=== PATIENT | male | born 1945 | race Caucasian/White ===

== ENCOUNTER → 2016-08-16 | Day surgery (SDC) | payer OTHER ==
[2016-08-04 11:09] VITALS: BMI 34.0
[~2016-08-16] VITALS: Ht 175.3 cm; Wt 106.8 kg
[~2016-08-16] MED LIST: FRS/40 PO; LIDOCAINE HCL 2% 2 ML VIAL (20MG/ML) ONE; LNX125 PO; METO1TAB66 PO; ONDANSETRON INJ 2 MG/ML 2 ML VIAL IV PRN; PROPOFOL IV EMULSION 10 MG/ML 20 ML VIAL IV ONE; SPIR25TA89 PO; TPRSR/100 PO; WARF3TAB PO; WARF3TAB6 PO
[2016-08-16 13:34] VITALS: Ht 175.3 cm; Wt 106.8 kg
--- NOTE | 2016-08-16 13:46 | Endo History and Physical ---
History & Physical Date of Service: Aug 16, 2016. Chief Complaint: Colon cancer screening Referring Physician: History of Present Illness Patient for colorectal cancer screening, no symptoms or family history. Past Surgical History Hx Cardiac Surgery: Yes (HEART CATH, NO STENT) Hx Internal Defibrillator: No Hx Pacemaker: No Hx Abdominal Surgery: Yes (UMBILICAL HERNIA REPAIR) Hx of Implantable Prosthesis: No Hx Post-Op Nausea and Vomiting: No Hx Cancer Surgery: No Hx Thoracic Surgery: No Hx Orthopedic: Yes (C5-6 FUSION (FULL ROM)) Hx Urinary Tract Surgery: No Family History None Social History Smoking Status: Never Smoker Hx Substance Use: No Hx Alcohol Use: Yes (OCCASIONAL) Allergies Coded Allergies: Penicillins (Verified Allergy, Severe, GI UPSET, 08/16/16) Sulfamethoxazole w/Trimethoprim (Verified Allergy, Severe, GI UPSET, HIVES , 08/16/16) Sulfa Antibiotics (Verified Allergy, Unknown, NAUSEA/VOMITING, 08/16/16) Current Medications Reported Home Medications Medications Dose Route/Sig Max Daily Dose Days Date Category Dose Instructions Jantoven (Warfarin Sodium) 3 Mg Tab 0.5 Tab PO 3XWK 08/04/16 Reported MON,WED,FRI Aldactone (Spironolactone) 25 Mg Tab 25 Mg PO QAM 08/04/16 Reported Toprol Xl (Metoprolol Succinate) 50 Mg Tab 50 Mg PO QAM 08/04/16 Reported Coumadin (Warfarin Sodium) 3 Mg Tab 3 Mg PO 4XWK 02/09/12 Reported SUN,TUES,THURS,SAT Lasix (Furosemide) 40 Mg Tab 40 Mg PO QAM 02/09/12 Reported Vital Signs Weight (Kilograms): 106.82 Height (Feet): 5 Height (Inches): 9 Date Time Temp Pulse Resp B/P Pulse Ox O2 Delivery O2 Flow Rate FiO2 08/16/16 13:39 36.5 53 20 151/87 94 Room Air Physical Exam General Appearance: no apparent distress Respiratory/Chest: Auscultation: deminished air movement Cardiovascular: Heart Auscultation: RRR Abdomen: Inspection & Palpation: soft, distended Assessment and Plan Patient for CRC screening today, risks discussed to include bleeding, infection , pain, perforation, missed polyps and cardiac problems.
--- NOTE | 2016-08-16 14:48 | GI REPORT ---
Procedure Date: 08/16/2016 1:51 PM Procedure: Colonoscopy Indications: Screening for colorectal malignant neoplasm Medicines: Monitored Anesthesia Care Complications: No immediate complications. Estimated blood loss: Minimal. Estimated Blood Loss: Estimated blood loss was minimal. Procedure: Pre-Anesthesia Assessment: - Prior to the procedure, a History and Physical was performed, and patient medications, allergies and sensitivities were reviewed. The patient's tolerance of previous anesthesia was reviewed. - The risks and benefits of the procedure and the sedation options and risks were discussed with the patient. All questions were answered and informed consent was obtained. - Patient identification and proposed procedure were verified prior to the procedure by the physician, the nurse and the manager primary. The procedure was verified in the procedure room. - Pre-procedure physical examination revealed no contraindications to sedation. - ASA Grade Assessment: III - A patient with severe systemic disease. - After reviewing the risks and benefits, the patient was deemed in satisfactory condition to undergo the procedure. - The anesthesia plan was to use monitored anesthesia care (MAC). - Immediately prior to administration of medications, the patient was re-assessed for adequacy to receive sedatives. - The heart rate, respiratory rate, oxygen saturations, blood pressure, adequacy of pulmonary ventilation, and response to care were monitored throughout the procedure. - The physical status of the patient was re-assessed after the procedure. After I obtained informed consent, the scope was passed under direct vision. Throughout the procedure, the patient's blood pressure, pulse, and oxygen saturations were monitored continuously. The scope was introduced through the anus and advanced to the terminal ileum. The colonoscopy was performed without difficulty. The patient tolerated the procedure well. The quality of the bowel preparation was adequate to identify polyps 6 mm and larger in size. Findings: The perianal and digital rectal examinations were normal. Pertinent negatives include normal sphincter tone. The terminal ileum appeared normal. Four sessile polyps were found in the ascending colon. The polyps were 5 to 10 mm in size. These polyps were removed with a hot snare. Resection and retrieval were complete. Estimated blood loss was minimal. Two 7 and 9 mm polyp was found in the descending colon. The polyp was semi-pedunculated. Polypectomy was attempted, initially using a hot snare. Polyp resection was incomplete with this device. This intervention then required a different device and polypectomy technique. The polyp was removed with a hot snare. Resection and retrieval were complete. Estimated blood loss was minimal. Internal hemorrhoids were found during retroflexion. The hemorrhoids were mild. The exam was otherwise without abnormality. Impression: - The examined portion of the ileum was normal. - Four 5 to 10 mm polyps in the ascending colon, removed with a hot snare. Resected and retrieved. - Two 7 and 9 mm polyp in the descending colon, removed with a hot snare. Resected and retrieved. - Internal hemorrhoids. - The examination was otherwise normal. Recommendation: - Discharge patient to home (ambulatory). - Advance diet as tolerated today. - Await pathology results. - Repeat colonoscopy in 3 years for surveillance based on pathology results. - Return to GI office PRN. Marques Ayoub D.O. Marques Ayoub, 08/16/2016 2:47:38 PM This report has been signed electronically. Note Initiated On: 08/16/2016 1:51 PM I attest to the content of the Intraoperative Record and orders documented therein, exceptions below
--- NOTE | 2016-08-16 15:06 | Discharge Instructions ---
Endoscopy Patient Instructions Date / Procedure(s) Performed Aug 16, 2016. Colonoscopy Allergy Information Coded Allergies: Penicillins (Verified Allergy, Severe, GI UPSET, 08/16/16) Sulfamethoxazole w/Trimethoprim (Verified Allergy, Severe, GI UPSET, HIVES , 08/16/16) Sulfa Antibiotics (Verified Allergy, Unknown, NAUSEA/VOMITING, 08/16/16) Discharge Date / Findings Aug 16, 2016. 6 colon polyps internal hemorrhoids Medication Instructions Stopped Medication(s): PATIENT INSTRUCTED TO STOP TAKING SPIRONALACTONE, LASIX, AND COUMADIN. Reported Home Medications Medications Dose Route/Sig Max Daily Dose Days Date Category Dose Instructions Jantoven (Warfarin Sodium) 3 Mg Tab 0.5 Tab PO 3XWK 08/04/16 Reported MON,WED,FRI Aldactone (Spironolactone) 25 Mg Tab 25 Mg PO QAM 08/04/16 Reported Toprol Xl (Metoprolol Succinate) 50 Mg Tab 50 Mg PO QAM 08/04/16 Reported Coumadin (Warfarin Sodium) 3 Mg Tab 3 Mg PO 4XWK 02/09/12 Reported SUN,TUES,THURS,SAT Lasix (Furosemide) 40 Mg Tab 40 Mg PO QAM 02/09/12 Reported Provider Instructions Activity Restrictions - No exercising or heavy lifting for 24 hours. - Do not drink alcohol the day of the procedure. - Do not drive a car or operate machinery until the day after the procedure. - Do not make any important decisions or sign important papers in 24 hours after the procedure. Following Day: - Return to full activity which may include returning to work/school. Diet Start your diet with liquids and light foods (jello, soup, juice, toast). Then eat your usual diet if not nauseated. Treatment For Common After Affects For mild abdominal pain, bloating, or excessive gas: - Rest - Eat lightly - Lie on right side Follow-Up Information Repeat colonoscopy in 3 years May restart coumadin today. Anesthesia Information What You Should Know You have had a procedure that required some medicine to reduce anxiety and discomfort. This treatment is called moderate sedation. After receiving the treatment, you may be sleepy, but you will be able to breathe on your own. The effects of the treatment may last for several hours. Follow these instructions along with Activity/Diet recommendations noted above: * Do NOT do anything where dizziness or clumsiness would be dangerous. * Rest quietly at home today, then you can be up and about tomorrow. * Have a responsible person stay with you the rest of today. * You may have had an I.V. today. If so, you may take the dressing off later today. Recommendations Call your doctor if: * Trouble breathing * Continuous vomiting for more than 24 hours * Temperature above 101 degrees * Severe abdominal pain or bloating * Pain not relieved by pain medicine ordered * There is increased drainage or redness from any incision * A large amount of rectal bleeding greater than 2-3 tablespoons. (If you had a polyp/s removed or have hemorrhoids, a small amount of blood - from the rectum is to be expected.) * You have any unanswered questions or concerns. IN THE EVENT OF A SERIOUS EMERGENCY, GO TO THE NEAREST EMERGENCY ROOM Your discharge instructions were prepared by provider Marques Ayoub. Patient Instructions Signature Page Eric Tyler Patient (or Guardian) Signature/Date: I have read and understand the instructions given to me by my caregivers. Caregiver/RN/Doctor Signature/Date: The above-named patient and/or guardian has received patient instructions on this date. + Original Patient Signature Page (only) stays with chart. Please make copy for patient.
[2016-08-16 15:19] VITALS: BP 143/80; PULSE 89; O2SAT 96
--- NOTE | 2016-08-16 15:33 | Anesthesiology Progress Note ---
Anesthesia Post Op Note Date & Time Aug 16, 2016 at 15:32 Vital Signs Pain Intensity: 0 Vital Signs Past 12 Hours Date Time Temp Pulse Resp B/P Pulse Ox O2 Delivery O2 Flow Rate FiO2 08/16/16 15:19 89 20 143/80 96 Room Air 08/16/16 15:06 82 20 142/75 96 Room Air 08/16/16 14:51 89 20 126/78 96 Room Air 08/16/16 13:39 36.5 53 20 151/87 94 Room Air Notes Mental Status: alert / awake / arousable, participated in evaluation Pt Amnestic to Procedure: Yes Nausea / Vomiting: adequately controlled Pain: adequately controlled Airway Patency, RR, SpO2: stable & adequate BP & HR: stable & adequate Hydration State: stable & adequate Anesthetic Complications: no major complications apparent
== END | disposition home or self-care (01) ==
LOC: C.GI 12:50
PROVIDERS: ATTEND Internal Medicine Gastroenterology
DX: Z12.11 Encounter for screening for malignant neoplasm of colon (principal); D12.2 Benign neoplasm of ascending colon; D12.4 Benign neoplasm of descending colon; K64.8 Other hemorrhoids; Z88.0 Allergy status to penicillin; Z88.2 Allergy status to sulfonamides; Z98.1 Arthrodesis status; Z79.01 Long term (current) use of anticoagulants

== ENCOUNTER 2017-02-21 02:06 | Inpatient (IN) | payer OTHER ==
[2017-02-21] VITALS (9 sets, daily range): BP systolic 101–124; BP diastolic 63–86; PULSE 71–98; TEMP 36.4–37; O2SAT 90–97; BMI 38.4
[~2017-02-21] VITALS: Ht 175.3 cm; Wt 118.0 kg
[~2017-02-21 02:06] MED LIST changes: -LIDOCAINE HCL 2% 2 ML VIAL (20MG/ML) ONE; -LNX125 PO; -ONDANSETRON INJ 2 MG/ML 2 ML VIAL IV PRN; -PROPOFOL IV EMULSION 10 MG/ML 20 ML VIAL IV ONE; -TPRSR/100 PO
[2017-02-21] MEDS ORDERED: DILTIAZEM HCL 5 MG/ML 5 ML VIAL IV STA (02:28)
[2017-02-21 02:41] LABS: BASO % 0.4 %; BASO ABS # 0.06 K/uL (0-0.2); COMPLETE YES; EOS % 0.6 %; HEMATOCRIT 52.8 % (42-52); LYMPH % 11.9 %; LYMPH ABS # 1.62 K/uL (1.2-3.4); MEAN CORPUSCULAR HEMOGLOBIN 33.1 pg (25-34); MEAN CORPUSCULAR HGB CONC 34.8 g/dl (32-36); MEAN PLATELET VOLUME 12.9 fL (7.4-10.4); NEUT % 81.1 %; PLATELET COUNT 321 K/uL (130-400); RED BLOOD COUNT 5.56 M/uL (4.7-6.1); WHITE BLOOD COUNT 13.66 K/uL (4.8-10.8)
--- NOTE | 2017-02-21 02:54 | EMERGENCY ROOM VISIT NOTE ---
History Report prepared by Pranavibe: Cindy Gearrdo Under the Supervision of: Tg OkeefeO. First contact with patient: 02:19 Chief Complaint: TACHYCARDIA Stated Complaint: BAD COLD, HISTORY OF BRONCHITIS, TACHYCARDIA Nursing Triage Summary: Not feeling well past few days, cough. On way to hospital had tachycardia, had it years ago but not recently. Has shortness of breath now and dizziness earlier this afternoon. No chest pressure. History of Present Illness The patient is a 71 year old male who presents to the Emergency Room with complaints of a constant racing heart beat occurring just prior to arrival. The patient notes that he has also had a cough for about a week. He has shortness of breath that worsens with walking. He denies having a fever or much an appetite for the past week. The patient took Robitussin with minimal relief. Source of History: patient Onset: just prior to arrival Position: other (heart racing) Timing: constant Associated Symptoms: + cough, + SOB, No fevers Note: Pt notes decreased appetite. Review of Systems See HPI for pertinent positives and negatives. A total of ten systems were reviewed and were otherwise negative. Past Medical & Surgical Medical Problems: (1) Atrial fibrillation (2) Respiratory failure, acute Family History no pertinent family history stated Social History Smoking Status: Never Smoker Alcohol Use: none Marital Status: Current/Historical Medications Scheduled Furosemide (Lasix), 40 MG PO QAM Metoprolol Succinate (Metoprolol Succinate ER), 50 MG PO BID Spironolactone (Aldactone), 25 MG PO QAM Warfarin Sodium (Coumadin), 1 TAB PO 5XWK Warfarin Sodium (Coumadin), 2 TAB PO WK Allergies Coded Allergies: Penicillins (Verified Allergy, Severe, GI UPSET, 02/21/17) Sulfamethoxazole w/Trimethoprim (Verified Allergy, Severe, GI UPSET, HIVES , 02/21/17) Sulfa Antibiotics (Verified Allergy, Unknown, NAUSEA/VOMITING, 02/21/17) Physical Exam Vital Signs Date Time Temp Pulse Resp B/P (MAP) Pulse Ox O2 Delivery O2 Flow Rate FiO2 02/21/17 05:09 80 02/21/17 04:25 86 22 108/71 96 Nasal Cannula 3.0 02/21/17 04:08 102 102/76 02/21/17 03:45 89 20 93/63 96 Nasal Cannula 3.0 02/21/17 02:56 103 95 02/21/17 02:55 96/79 02/21/17 02:51 84 22 95 Nasal Cannula 3.0 02/21/17 02:47 90/72 02/21/17 02:39 107 02/21/17 02:38 105 02/21/17 02:37 120 02/21/17 02:36 117 02/21/17 02:36 175 22 91 Room Air 02/21/17 02:35 93 Nasal Cannula 3.0 02/21/17 02:33 93 Room Air 02/21/17 02:33 93 Room Air 02/21/17 02:33 Nasal Cannula 3.0 02/21/17 02:32 141/87 02/21/17 02:28 102/95 02/21/17 02:27 173 02/21/17 02:26 134 02/21/17 02:23 178 02/21/17 02:14 36.4 176 20 94 Room Air Physical Exam GENERAL: Awake, alert, well-appearing, in no distress HENT: Normocephalic, atraumatic. Oropharynx unremarkable. EYES: Normal conjunctiva. Sclera non-icteric. NECK: Supple. No nuchal rigidity. FROM. No JVD. RESPIRATORY: Clear to auscultation. CARDIAC: Irregularly irregular rate, tachycardic rhythm. Extremities warm and well perfused. Pulses equal. ABDOMEN: Soft, non-distended. No tenderness to palpation. No rebound or guarding. No masses. RECTAL: Deferred. MUSCULOSKELETAL: Chest examination reveals no tenderness. The back is symmetrical on inspection without obvious abnormality. There is no CVA tenderness to palpation. No joint edema. LOWER EXTREMITIES: Calves are equal size bilaterally and non-tender. Mild bilateral lower edema. No discoloration. NEURO: Normal sensorium. No sensory or motor deficits noted. SKIN: No rash or jaundice noted. Medical Decision & Procedures ER Provider Diagnostic Interpretation: X ray results as stated below per my interpretation and radiologist interpretation. Other radiology results as stated below per my review and radiologist interpretation CHEST XRAY: Cardiomegaly and mild CHF. Laboratory Results 02/21/17 02:25 Red Blood Count 5.56, Mean Corpuscular Volume 95.0, Mean Corpuscular Hemoglobin 33.1, Mean Corpuscular Hemoglobin Concent 34.8, Mean Platelet Volume 12.9, Neutrophils (%) (Auto) 81.1, Lymphocytes (%) (Auto) 11.9, Monocytes (%) (Auto) 5.0, Eosinophils (%) (Auto) 0.6, Basophils (%) (Auto) 0.4, Neutrophils # (Auto) 11.09, Lymphocytes # (Auto) 1.62, Monocytes # (Auto) 0.68, Eosinophils # (Auto) 0.08, Basophils # (Auto) 0.06 02/21/17 02:25 Test 02/21/17 02:25 02/21/17 02:30 02/21/17 03:25 02/21/17 05:28 White Blood Count 13.66 K/uL (4.8-10.8) Red Blood Count 5.56 M/uL (4.7-6.1) Hemoglobin 18.4 g/dL (14.0-18.0) Hematocrit 52.8 % (42-52) Mean Corpuscular Volume 95.0 fL (80-100) Mean Corpuscular Hemoglobin 33.1 pg (25-34) Mean Corpuscular Hemoglobin Concent 34.8 g/dl (32-36) Platelet Count 321 K/uL (130-400) Mean Platelet Volume 12.9 fL (7.4-10.4) Neutrophils (%) (Auto) 81.1 % Lymphocytes (%) (Auto) 11.9 % Monocytes (%) (Auto) 5.0 % Eosinophils (%) (Auto) 0.6 % Basophils (%) (Auto) 0.4 % Neutrophils # (Auto) 11.09 K/uL (1.4-6.5) Lymphocytes # (Auto) 1.62 K/uL (1.2-3.4) Monocytes # (Auto) 0.68 K/uL (0.11-0.59) Eosinophils # (Auto) 0.08 K/uL (0-0.5) Basophils # (Auto) 0.06 K/uL (0-0.2) RDW Standard Deviation 49.9 fL (36.4-46.3) RDW Coefficient of Variation 14.4 % (11.5-14.5) Immature Granulocyte % (Auto) 1.0 % Immature Granulocyte # (Auto) 0.13 K/uL (0.00-0.02) Anion Gap 8.0 mmol/L (3-11) Est Creatinine Clear Calc Drug Dose 50.6 ml/min Estimated GFR () 46.0 Estimated GFR (Non- 39.7 BUN/Creatinine Ratio 15.8 (10-20) Calcium Level 9.0 mg/dl (8.5-10.1) Magnesium Level 2.7 mg/dl (1.8-2.4) Total Bilirubin 1.3 mg/dl (0.2-1) Direct Bilirubin mg/dl (0-0.2) Aspartate Amino Transf (AST/SGOT) 18 U/L (15-37) Alanine Aminotransferase (ALT/SGPT) 29 U/L (12-78) Alkaline Phosphatase 111 U/L (45-117) Pro-B-Type Natriuretic Peptide 91039 pg/ml (0-900) Total Protein 8.1 gm/dl (6.4-8.2) Albumin 2.7 gm/dl (3.4-5.0) Beta-Hydroxybutyric Acid 0.97 mg/dL (0.2-2.81) Thyroid Stimulating Hormone (TSH) 1.190 uIu/ml (0.300-4.500) Chemistry Specimen Hemolysis Bedside Troponin I 0.050 ng/ml (0-0.045) Prothrombin Time 77.0 SECONDS (9.0-12.0) Prothromb Time International Ratio 6.7 (0.9-1.1) Arterial Blood pH 7.45 (7.35-7.45) Arterial Blood Partial Pressure CO2 41 mmHg (35-46) Arterial Blood Partial Pressure O2 102 mm/Hg (80-95) Arterial Blood HCO3 27 mmol/L (19-24) Arterial Blood Oxygen Saturation 97.9 % (90-95) Arterial Blood Base Excess 3.0 mEq/L (-9-1.8) Arterial Blood Gas Delivery 3L Mansoor Test POS (POS) Test 02/21/17 05:42 Laboratory results reviewed by me Medications Administered Medications (Trade) Dose Ordered Sig/Sarah Route Start Time Stop Time Status Last Admin Dose Admin Diltiazem HCl (Cardizem Inj) 20 mg NOW STAT IV 02/21/17 02:28 02/21/17 02:30 DC 02/21/17 02:33 20 MG Furosemide 40 mg/ Syringe 4 ml @ 4 mls/min NOW STAT IV 02/21/17 03:02 02/21/17 03:03 DC 02/21/17 03:14 4 MLS/MIN Aspirin (Aspirin Chew) 324 mg NOW STAT PO 02/21/17 03:03 02/21/17 03:04 DC 02/21/17 03:09 324 MG Metoprolol Tartrate (Lopressor Iv) 5 mg Q5M IV 02/21/17 04:00 03/23/17 03:59 02/21/17 04:08 5 MG Potassium Chloride (Klor-Con M10) 40 meq NOW STAT PO 02/21/17 05:04 02/21/17 05:06 DC 02/21/17 05:31 40 MEQ ECG Indication: tachycardia Rate (beats per minute): 173 Rhythm: atrial fibrillation (rapid) Findings: no acute ischemic change, other (normal axis) ED Course 0227: The patient was evaluated in room B12B. A complete history and physical exam was performed. 0228:Cardizem Inj 20 mg IV. 0302: Furosemide 40 mg /Syringe 4 ml @ 4 mls/min IV. 0303: Asprin 324 mg PO. 0307: Lasix Inj 40 mg .ROUTE. 0400: Lopressor Iv 5 mg IV. 0455: Discussed the patient's case with Dr. Daniel-[facility] [place]. The patient will be evaluated for further treatment and disposition. 0502: Upon reexamination, the patient was resting comfortably. I discussed the test results and treatment plan with him. The patient will be evaluated for further management. Medical Decision Differential diagnosis includes bronchitis, CHF, pneumonia, rapid atrial fibrillation, and URI. Patient was started on IV Cardizem, IV Lopressor, aspirin patient has an elevated troponin has rapid atrial fibrillation and CHF. Patient was also given IV Lasix. Patient will be admitted for further evaluation of rapid atrial fibrillation CHF and a positive troponin. Medication Reconcilliation Current Medication List: was personally reviewed by hi Blood Pressure Screening Patient's blood pressure: Low blood pressure Consults Time Called: [phone] Consulting Physician: Dr. Daniel Returned Call: [phone] Discussed the patient's case. The patient will be evaluated for further treatment and disposition. Impression Primary Impression: Rapid atrial fibrillation Additional Impressions: Elevated troponin CHF (congestive heart failure) Critical Care I have personally spent greater than 35 minutes of critical care time in the direct management of this patient. This includes bedside care, interpretation of diagnostic studies, and testing, discussion with consultants, patient, and family members, and other required patient management activities. This 35 minutes is in excess of all separately billable procedures. Scribe Attestation The scribe's documentation has been prepared under my direction and personally reviewed by me in its entirety. I confirm that the note above accurately reflects all work, treatment, procedures, and medical decision making performed by me. Departure Information Dispostion Being Evaluated By Hospitalist Riaz Hammonds M.D. (PCP) Patient Instructions My [facility] Problem Qualifiers
[2017-02-21] MEDS ORDERED: FUROSEMIDE INJ 40 MG in SYRINGE 0 ML IV STA (03:02)
[2017-02-21] MEDS ORDERED: ASPIRIN 81 MG CHEW PO STA (03:03)
[2017-02-21] MEDS ORDERED: FUROSEMIDE 40 MG/4 ML VIAL ONE (03:07)
[2017-02-21 03:10] LABS: ALKALINE PHOSPHATASE 111 U/L (45-117); ALT/SGPT 29 U/L (12-78); AST/SGOT 18 U/L (15-37); BLOOD UREA NITROGEN 27 mg/dl (7-18); BUN/CREATININE RATIO 15.8 (10-20); CARBON DIOXIDE 31 mmol/L (21-32); CHLORIDE 96 mmol/L (98-107); GLUCOSE 323 mg/dl (70-99); POTASSIUM 3.7 mmol/L (3.5-5.1); SODIUM 135 mmol/L (136-145)
[2017-02-21 03:26] LABS: BETA-HYDROXYBUTYRATE 0.97 mg/dL (0.2-2.81)
[2017-02-21] MEDS ORDERED: TPRSR/100 PO (03:32)
[2017-02-21] MEDS ORDERED: WARF3TAB PO ×2 (03:32)
[2017-02-21] MEDS ORDERED: METOPROLOL TARTRATE 1 MG/ML VIAL IV SCH (04:00)
[2017-02-21 04:14] LABS: INR 6.7 (0.9-1.1)
[2017-02-21] MEDS ORDERED: POTASSIUM CHLORIDE 10 MEQ TABCR PO STA (05:04)
[2017-02-21 05:40] LABS: ARTERIAL BLD GAS O2 SATURATION 97.9 % (90-95); ARTERIAL BLOOD GAS HCO3 27 mmol/L (19-24); ARTERIAL BLOOD GAS PO2 102 mm/Hg (80-95); ARTERIAL BLOOD GAS pH 7.45 (7.35-7.45)
[2017-02-21 05:41] LABS: ALLEN TEST POS (POS); O2 ADMINISTRATION 3L
[2017-02-21 05:46] LABS: MAGNESIUM 2.7 mg/dl (1.8-2.4); THYROID STIMULATING HORMONE 1.19 uIu/ml (0.300-4.500)
[2017-02-21 06:26] LABS: ESTIMATED AVERAGE GLUCOSE 171 mg/dl; HA1C FLAG Normal (Normal)
[2017-02-21] MEDS ORDERED: LEVALBUTEROL/IPRATROPIUM NEB INH STA (06:45)
[2017-02-21] MEDS ORDERED: LEVALBUTEROL/IPRATROPIUM NEB INH PRN (06:45)
[2017-02-21] MEDS ORDERED: METOPROLOL SUCC 50MG EXT REL TAB PO ONE (06:46)
[2017-02-21] MEDS ORDERED: INSULIN GLARGINE SOLOSTAR 100 UNITS/ML 3 ML PEN SC ONE (06:46)
[2017-02-21] MEDS ORDERED: IPRATROPIUM BROMIDE NEB SOLN 0.02% 2.5 ML VIAL INH STA (06:53)
[2017-02-21] MEDS ORDERED: LEVALBUTEROL 1.25MG/0.5ML NEB INH STA (06:53)
[2017-02-21] MEDS ORDERED: DOXYCYCLINE HYCLATE 100 MG CAP PO ONE (06:56)
[2017-02-21] MEDS ORDERED: PHYTONADIONE 5 MG TAB PO STA (06:57)
[2017-02-21] MEDS ORDERED: SODIUM CHLORIDE 0.9% 500ML 500 ML IV ONE (07:00)
[2017-02-21] MEDS ORDERED: NITROGLYCERIN 0.4 MG SL PER TAB CHARGE SL PRN (07:00)
[2017-02-21] MEDS ORDERED: IPRATROPIUM BROMIDE NEB SOLN 0.02% 2.5 ML VIAL INH PRN (07:00)
[2017-02-21] MEDS: INSULIN ASPART 100 UNITS/ML 3 ML PEN SC SCH ×4 (07:00→20:26)
[2017-02-21] MEDS ORDERED: DEXTROSE 50% 50 ML SYR IV PRN (07:00)
[2017-02-21] MEDS ORDERED: GLUCOSE 40% GEL 15 GM TUBE PO PRN (07:00)
[2017-02-21] MEDS ORDERED: ACETAMINOPHEN 325 MG TAB PO PRN (07:00)
[2017-02-21] MEDS ORDERED: LEVALBUTEROL 1.25MG/0.5ML NEB INH PRN (07:00)
[2017-02-21] MEDS ORDERED: GLUCAGON FOR INJ 1 MG VIAL SQ PRN (07:00)
[2017-02-21] MEDS ORDERED: GLUCOSE 10 TABS/TUBE PO PRN (07:00)
[2017-02-21] MEDS ORDERED: SODIUM CHLORIDE 0.9% NEBU SOLN 3 ML NEB INH PRN (07:45)
--- NOTE | 2017-02-21 07:45 | DIAGNOSTIC IMAGING REPORT ---
CHEST ONE VIEW PORTABLE HISTORY: Atypical CHEST PAIN COMPARISON: Chest 02/09/2012. FINDINGS: Low lung volumes. The heart remains mildly enlarged. Suspect trace bilateral pleural effusions. Perihilar interstitial vascular thickening consistent with mild pulmonary edema. IMPRESSION: Mild cardiomegaly with trace bilateral pleural effusions and mild pulmonary edema. Electronically signed by: Fabian Ba M.D. 02/21/2017 7:43 AM Dictated Date/Time: 02/21/2017 7:42 AM
[2017-02-21] MEDS ORDERED: SODIUM CHLORIDE 0.9% NEBU SOLN 3 ML NEB INH SCH (08:00)
[2017-02-21 08:03] LABS: URINE APPEARANCE CLEAR (CLEAR); URINE COLOR DK YELLOW; URINE NITRITE NEG (NEG); URINE SPECIFIC GRAVITY 1.024 (1.000-1.030); UROBILINOGEN POS (NEG); ZZUR CULT IF INDIC CLEAN CATCH NO
[2017-02-21 08:12] LABS: MANUAL MICROSCOPIC REQUIRED? NO; REVIEW REQ? YES
[2017-02-21 08:20] LABS: URINE BILIRUBIN NEG (NEG)
[2017-02-21 08:24] LABS: URINE MUCUS PRESENT (NONE PRSENT)
[2017-02-21] MEDS ORDERED: METOPROLOL TARTRATE 1 MG/ML VIAL IV STA (08:40)
[2017-02-21] MEDS ORDERED: METOPROLOL TARTRATE 1 MG/ML VIAL IV PRN (08:45)
[2017-02-21] MEDS ORDERED: IPRATROPIUM BROMIDE NEB SOLN 0.02% 2.5 ML VIAL INH SCH (09:00)
[2017-02-21] MEDS ORDERED: LEVALBUTEROL 1.25MG/0.5ML NEB INH SCH (09:00)
[2017-02-21] MEDS ORDERED: LEVALBUTEROL/IPRATROPIUM NEB INH SCH (09:00)
--- NOTE | 2017-02-21 09:12 | HISTORY & PHYSICAL EXAMINATION ---
DATE OF ADMISSION: 02/21/2017 PRIMARY CARE DOCTOR: Dr. Ochoa. CHIEF COMPLAINT: Palpitations, tachycardia. HISTORY OF PRESENT ILLNESS: History obtained from patient and records. Medical history significant for hypertension, chronic systolic heart failure, nonischemic cardiomyopathy as per records (EF 15-205), valvular heart disease (severe mitral regurgitation), pulmonary embolus/portal vein thrombosis on anticoagulation, PSVT as per records. Recent confinement last July 2011 for acute colitis. Last week the patient had dry cough symptoms, not feeling well, appetite poor, using inhalers just twice a day as per patient. Patient woke up this morning with palpitations, racing heart, increasing shortness of breath. Denies weight gain, unusual leg swelling. At the Emergency Room, the patient noted to be in rapid Afib, thought to be in CHF. Given Lopressor. Lasix. Patient little more comfortable. MED hx as above : 2D echo from August 2015 showed diffuse segmental LV hypokinesis to akinesis. All segments of inferior, posterior, posterolaterally left ventricle are akinetic, anterolateral wall dyskinetic, basal segments. hypokinetic calculated LVEF 15-20%, pulmonary hypertension noted, PASP greater than 39, severe MR, moderate TR. Last seen at [facility] October 2015. Referred [facility] for SVT. Patient had later requested to be seen by another partner in the group due to some difference in opinion. [facility] evaluation December 2015 (Dr. Lewis) December 2015. Catheter ablation recommended for SVT because of recurrence of tachycardia. Recommendation for primary prevention ICD also recommended because of cardiomegaly with severe LV dysfunction. MEDICAL HISTORY: As above. SURGICAL HISTORY: Neck surgery, tonsillectomy, adenectomy, hernia repair. HOME MEDICATIONS: Include Lasix, Toprol, spironolactone, Coumadin. ALLERGIES: BACTRIM, PENICILLIN, SULFA. FAMILY HISTORY: Family history of heart disease. PERSONAL AND SOCIAL HISTORY: Nonsmoker, no EtOH intake, retired from purchasing. REVIEW OF SYSTEMS: As per HPI, all other ROS negative. PHYSICAL EXAMINATION: VITAL SIGNS: Blood pressure was noted to be 90/60 later 110/70, pulse rate 176, currently 89, RR 20, temperature 36.4, sats 94 on room air, later 93 on 3 liters. GENERAL: Noted to be obese, anxious, no respiratory distress. SKIN: Normal color. HEAD, EYES, EARS, NOSE, AND THROAT: Alopecia. Evans palpebral conjunctivae. Dry mucosa. NECK: Short neck. HEART: irreg, diminished S1, S2, systolic murmur. CHEST: Decreased breath sounds. ABDOMEN: Some distention, nontender. EXTREMITIES: Minimal LE edema. No tenderness NEUROLOGIC: No gross focality. LABORATORY DATA: Hemoglobin was noted to be 18.4, white cell count is 13.86, platelets 321. Sodium noted to be 137, K 3.6 chloride 96, CO2 31, BUN 20, creatinine 1.7, glucose 323. INR was noted to be 6.7. Chest x-ray showed mild cardiomegaly with trace bilateral pleural effusion and mild pulmonary edema. interstitial vascular thickening EKG as per my interpretation, rate 175, Afib vs SVT, right bundle branch block. ASSESSMENT AND PLAN: 1. Acute hypoxemic respiratory failure secondary to complicated bronchitis vs atypical pneumonia possible sepsis. 2. Rapid atrial fibrillation vs SVT secondary to above. Hx of supraventricular tachycardia px has not decided on ablation recommendations by [facility] from last year 4. history of pulmonary embolism on Coumadin. INR is supratherapeutic. 5. Chronic systolic heart failure secondary to nonischemic cardiomyopathy (EF 15-20% TTE 2016) equivocal volume status. 6. hx severe MR on recent TTE 7. Acute renal failure secondary to illness. 8. Hyperglycemia, rule out diabetes. PLAN: PCU supplemental O2. Baseline ABG. [facility] RTC, p.r.n. Doxycycline for complicated bronchitis gentle hydration. Hold home Lasix for now. TTE, Cardio consult RE new onset Afib vs SVT Check hemoglobin A1c. May need diabetic education pending hemoglobin A1c results. DVT prophylaxis. Coumadin INR 2-3. Hold Coumadin for now given supratherapeutic levels. FULL CODE. MTDD
--- NOTE | 2017-02-21 09:34 | CARDIOLOGY CONSULTATION ---
DATE OF CONSULTATION: 02/21/2017 [facility]: [facility], marina [facility]. REASON FOR CONSULTATION: Cardiac arrhythmias. HISTORY OF PRESENT ILLNESS: This is a 71-year-old male patient who was last seen in our practice a little over a year ago. He has a history of nonischemic cardiomyopathy; pulmonary emboli with portal vein thrombosis, on chronic anticoagulation; chronic kidney disease, stage III; and a history of both PSVT and nonsustained ventricular tachycardia. The patient's last echocardiogram done in August of 2015 revealed an estimated left ventricular ejection fraction of 15-20%. The patient had an abnormal stress test in 2008 and then proceeded to heart catheterization that showed no significant coronary artery disease, but severe left ventricular dysfunction. The patient a little over a year ago was seen by Dr. Stacy Lewis at [facility] due to his cardiac arrhythmias. At presentation to that visit, the patient was in an SVT and was given doses of adenosine, which did not convert him to normal sinus rhythm. Later on in the visit, however, he spontaneously converted to a normal sinus. According to Dr. Lewis's note, patient has both PSVT as well as frequent PVCs and nonsustained ventricular tachycardia. He recommended an electrophysiology study with a possible ablation for his PSVT as well as an ICD. The patient, at that time, was reluctant to have any procedures and he was then lost to follow up until his presentation to the Emergency Department. He began to have his usual tachycardia, which after simple maneuvers such as coughing and leaning forward, it did not tello. He continued to have tachycardia and then presented to the Emergency Department where he has now been admitted. On the telemetry, he has a right bundle branch block. The EKG is fairly regular at a rate of approximately 170 beats per minute with no discernible atrial activity. He also has had runs of nonsustained ventricular tachycardia on the telemetry since admission. He has been flipping in and out of PSVT and sinus rhythm. He has no complaints during short runs of arrhythmias. He was given some Lasix in the Emergency Department and has no complaints now or shortness of breath or dyspnea. He denies chest pain. ALLERGIES: PENICILLIN, SULFA ANTIBIOTICS AND BACTRIM. PAST MEDICAL HISTORY: As outlined above, the patient has a nonischemic cardiomyopathy with severe LV dysfunction. He has both PSVT as well as nonsustained ventricular arrhythmias. On a Holter monitor performed in 2012, he had greater than 36,000 PVCs in 24 hours. Previous echo also shows severe mitral regurgitation and moderate tricuspid regurgitation due to pulmonary hypertension. He is on chronic anticoagulation due to previous pulmonary emboli and portal vein thrombosis. I am not certain as to whether the patient has been worked up for hypercoagulable state, but we can only assume that this could be a problem. Of note is that the patient is not currently taking diabetic medications, but his hemoglobin A1c on presentation is 7.6 and his random glucose was 323. SOCIAL HISTORY: He lives with his family. He is . He is a nonsmoker. FAMILY MEDICAL HISTORY: Noncontributory. REVIEW OF SYSTEMS: A 10-point review of systems is negative except for the history of chief complaint. PHYSICAL EXAMINATION: GENERAL: He is alert and oriented. VITAL SIGNS: Blood pressure is 110/80, pulse is irregular at 90 beats per minute. He is afebrile. HEENT: He is normocephalic. Pupils are equal and reactive to light. Extraocular muscles are intact bilaterally. NECK: The neck veins are flat. Carotids have good upstrokes bilaterally without bruits. Thyroid is not palpable. RESPIRATORY: Breath sounds are equal bilaterally and clear to auscultation. CARDIOVASCULAR: Heart has a regular rhythm. Normal S1, S2. No S3, S4. There is a systolic murmur at the apex of the heart. GASTROINTESTINAL: Abdomen is obese, soft, nontender without organomegaly. EXTREMITIES: Free of edema, digit clubbing, or cyanosis. NEUROLOGIC: Grossly intact. SKIN: Warm to touch. LYMPH NODES: Negative to palpation. LABORATORY DATA: Troponin 0.05, potassium is 3.7, hemoglobin is 18.4. IMPRESSION: 1. Nonischemic cardiomyopathy with severe left ventricular dysfunction. 2. Complex arrhythmias including paroxysmal supraventricular tachycardia as well as complex ventricular ectopy with frequent premature ventricular contractions and nonsustained ventricular tachycardia. 3. Right bundle branch block. 4. Probable diabetes. 5. Chronic kidney disease. 6. History of pulmonary emboli and portal vein thrombosis. RECOMMENDATIONS: I think, at this point, it is best if the patient have an electrophysiology evaluation completed. He had one a little over a year ago as an outpatient, but at that time refused any procedures or treatments. I will consult electrophysiology for an evaluation and consideration of EP study and ablation for the PSVT and possible ICD implant.
[2017-02-21] MEDS ORDERED: NURSING VERBAL MED ORDER ONE (10:00)
[2017-02-21 10:09] LABS: PROTHROMBIN TIME (PATIENT) 74.7 SECONDS (9.0-12.0)
[2017-02-21 10:15] LABS: CKMB/CK RATIO 1.3 (0-3.0)
[2017-02-21] MEDS ORDERED: DIGOXIN IV 500 MCG in SYRINGE 8 ML IV ONE (10:15)
[2017-02-21 10:16] LABS: INR 6.5 (0.9-1.1)
[2017-02-21] MEDS: SODIUM CHLORIDE 0.9% NEBU SOLN 3 ML NEB INH SCH ×3 (12:00→19:29)
[2017-02-21 12:11] LABS: INFLUENZA A PCR Neg for Influ A (NEG); INFLUENZA B PCR Neg for Influ B (NEG)
[2017-02-21 15:57] LABS: CKMB/CK RATIO 1.4 (0-3.0)
--- NOTE | 2017-02-21 18:48 | Progress Note ---
Internal Med Progress Note Date of Service: Feb 21, 2017. Provider Documentation: SUBJECTIVE: offers non complain HR improved denies of any chest pain or SOB OBJECTIVE: Vital Signs-as noted below Exam: General-no sign of distress Eyes-sclera non icteric ENT-NAD Neck-no JVD Lungs-CTA Heart-regular Abdomen-soft, non tender Extremities- no lower ext edema Neuro-no focal deficit Lab data as noted below. ASSESSMENT & PLAN: SVT : appreciate input form Cardiology cont AV zoe blocking agents -pt given Dig /beta genaro EP Cardiology consulted for evaluation of possible ablation tx History of pulmonary embolism on Coumadin. INR is supratherapeutic. > 6 given vit K monitor INR cont to hold Coumadin Chronic systolic heart failure secondary to nonischemic cardiomyopathy (EF 15- 20% TTE 2016) vol status remains stable monitor DVT PROPHYLAXIS INR elevated DISPOSITION possible discharge home when medically stable Vital Signs: Date Time Temp Pulse Resp B/P (MAP) Pulse Ox O2 Delivery O2 Flow Rate FiO2 02/22/17 09:22 36.7 85 20 109/73 (85) 94 Room Air 02/22/17 09:05 89 02/22/17 08:53 Room Air Nasal Cannula 02/22/17 04:03 36.7 60 20 93/54 (67) 90 Room Air 02/22/17 04:00 Room Air 02/22/17 02:12 62 16 93 Room Air 02/21/17 23:59 Room Air 02/21/17 23:48 36.8 71 19 120/86 (97) 90 Room Air 02/21/17 20:00 Room Air 02/21/17 19:55 37.0 74 18 103/63 (76) 93 Room Air 02/21/17 19:29 79 20 94 Room Air 02/21/17 16:13 36.5 72 18 101/65 (77) 94 Room Air 02/21/17 16:00 Room Air Nasal Cannula 02/21/17 14:12 71 20 95 Room Air 02/21/17 12:34 36.6 80 18 124/67 (86) 93 Room Air 02/21/17 12:00 Room Air Nasal Cannula Lab Results: Results Past 24 Hours Test 02/21/17 11:35 02/21/17 12:01 02/21/17 15:09 02/21/17 16:26 Range/Units Bedside Glucose 186 130 70-99 mg/dl Troponin I 0.029 0.032 0-0.045 ng/ml Hepatitis C Antibody Screen NEG NEG Total Creatine Kinase 114 39-308 U/L Creatine Kinase MB 1.6 0.5-3.6 ng/ml Creatine Kinase MB Ratio 1.4 0-3.0 Test 02/21/17 20:05 02/21/17 22:51 02/22/17 05:57 02/22/17 06:57 Range/Units Bedside Glucose 108 127 70-99 mg/dl Total Creatine Kinase 121 39-308 U/L Creatine Kinase MB 1.8 0.5-3.6 ng/ml Creatine Kinase MB Ratio 1.5 0-3.0 Troponin I 0.029 0-0.045 ng/ml White Blood Count 10.46 4.8-10.8 K/uL Red Blood Count 5.43 4.7-6.1 M/uL Hemoglobin 17.6 14.0-18.0 g/dL Hematocrit 51.1 42-52 % Mean Corpuscular Volume 94.1 80-100 fL Mean Corpuscular Hemoglobin 32.4 25-34 pg Mean Corpuscular Hemoglobin Concent 34.4 32-36 g/dl Platelet Count 270 130-400 K/uL Mean Platelet Volume 12.6 7.4-10.4 fL Neutrophils (%) (Auto) 73.2 % Lymphocytes (%) (Auto) 15.5 % Monocytes (%) (Auto) 7.2 % Eosinophils (%) (Auto) 2.6 % Basophils (%) (Auto) 0.6 % Neutrophils # (Auto) 7.67 1.4-6.5 K/uL Lymphocytes # (Auto) 1.62 1.2-3.4 K/uL Monocytes # (Auto) 0.75 0.11-0.59 K/uL Eosinophils # (Auto) 0.27 0-0.5 K/uL Basophils # (Auto) 0.06 0-0.2 K/uL RDW Standard Deviation 49.7 36.4-46.3 fL RDW Coefficient of Variation 14.5 11.5-14.5 % Immature Granulocyte % (Auto) 0.9 % Immature Granulocyte # (Auto) 0.09 0.00-0.02 K/uL Prothrombin Time 26.8 9.0-12.0 SECONDS Prothromb Time International Ratio 2.4 0.9-1.1 Sodium Level 139 136-145 mmol/L Potassium Level 3.7 3.5-5.1 mmol/L Chloride Level 103 98-107 mmol/L Carbon Dioxide Level 33 21-32 mmol/L Anion Gap 3.0 3-11 mmol/L Blood Urea Nitrogen 31 7-18 mg/dl Creatinine 1.20 0.60-1.40 mg/dl Est Creatinine Clear Calc Drug Dose 71.6 ml/min Estimated GFR () 70.1 Estimated GFR (Non- 60.5 BUN/Creatinine Ratio 25.8 10-20 Random Glucose 137 70-99 mg/dl Calcium Level 8.7 8.5-10.1 mg/dl Triglycerides Level 67 0-150 mg/dl Cholesterol Level 89 0-200 mg/dl HDL Cholesterol 23 mg/dl LDL Cholesterol, Calculated 53 mg/dl VLDL Cholesterol, Calculated 13 mg/dl Cholesterol/HDL Ratio 3.9
[2017-02-21] MEDS: DOXYCYCLINE HYCLATE 100 MG CAP PO SCH (20:42)
[2017-02-21] MEDS: METOPROLOL SUCC 50MG EXT REL TAB PO SCH (20:42)
[2017-02-21 23:44] LABS: CKMB/CK RATIO 1.5 (0-3.0)
[2017-02-22] VITALS (8 sets, daily range): BP systolic 93–130; BP diastolic 54–76; PULSE 59–85; TEMP 36.5–36.7; O2SAT 90–94; Ht 175.3 cm; Wt 118.0 kg
[2017-02-22] MEDS: SODIUM CHLORIDE 0.9% NEBU SOLN 3 ML NEB INH SCH ×3 (02:12→14:21)
[2017-02-22 06:48] LABS: BASO % 0.6 %; BASO ABS # 0.06 K/uL (0-0.2); COMPLETE YES; EOS % 2.6 %; HEMATOCRIT 51.1 % (42-52); IG% 0.9 %; LYMPH % 15.5 %; LYMPH ABS # 1.62 K/uL (1.2-3.4); MEAN CELL VOLUME 94.1 fL (80-100); MEAN CORPUSCULAR HEMOGLOBIN 32.4 pg (25-34); MEAN CORPUSCULAR HGB CONC 34.4 g/dl (32-36); MEAN PLATELET VOLUME 12.6 fL (7.4-10.4); MONO % 7.2 %; NEUT % 73.2 %; PLATELET COUNT 270 K/uL (130-400); RED BLOOD COUNT 5.43 M/uL (4.7-6.1); WHITE BLOOD COUNT 10.46 K/uL (4.8-10.8)
[2017-02-22] MEDS: INSULIN ASPART 100 UNITS/ML 3 ML PEN SC SCH ×4 (07:00→20:44)
[2017-02-22 07:06] LABS: INR 2.4 (0.9-1.1); PROTHROMBIN TIME (PATIENT) 26.8 SECONDS (9.0-12.0)
[2017-02-22 07:21] LABS: BUN/CREATININE RATIO 25.8 (10-20); CALCIUM 8.7 mg/dl (8.5-10.1); CREATININE 1.2 mg/dl (0.60-1.40); POTASSIUM 3.7 mmol/L (3.5-5.1)
[2017-02-22 07:25] LABS: CHOLESTEROL/HDL RATIO 3.9
--- NOTE | 2017-02-22 07:48 | CARDIOLOGY CONSULTATION ---
DATE OF CONSULTATION: 02/21/2017 ELECTROPHYSIOLOGY CONSULT REFERRING PHYSICIAN: Dr. Resendez. REASON FOR CONSULT: SVT, nonischemic cardiomyopathy. HISTORY OF PRESENT ILLNESS: This is a 71-year-old gentleman who has been lost to followup in the past year. He a year ago did see my partner Dr. Lewis due to paroxysmal SVT, thought to be possible A-V zoe reentry in addition to nonischemic cardiomyopathy. At that time he was offered an EP study and possible ablation, but he refused. He did not want to undergo any procedures and was lost to followup. He presented to [facility] secondary to recurrent episodes of the SVT that had worsened in the past couple of weeks, lasting longer and associated with some lightheadedness and dizziness and shortness of breath. Apparently over the last 2 weeks, he does report that he felt like he was coming down with the flu. He had some fevers and chills and coughing. He did not seek any medical attention, but tried wnec-zfo-ehksydl remedies including lot of pseudoephedrine as well as medicines that had dextromethorphan in it. He otherwise reports in the past year, denies any dyspnea on exertion, chest pain, lower extremity edema. He reports that his palpitations are fairly controlled with the high dose metoprolol that he was on and they were not that interfering with his life's daily activities, however, his family thinks otherwise. PAST MEDICAL HISTORY: Nonischemic cardiomyopathy, ejection fraction 15-20% by echo in 2016, paroxysmal SVT, chronic congestive systolic heart failure, [place] Heart Association class 3, severe mitral regurgitation, moderate tricuspid regurgitation, frequent PVCs of 136,000 in 24-hour period on a Holter back in 2011, history of DVT and PE, on chronic anticoagulation of Coumadin, hypokalemia in the past when on Lasix, obesity, hyperlipidemia, chronic kidney disease stage III. PAST SURGICAL HISTORY: SOCIAL HISTORY: Lifelong nonsmoker. Rare use of alcohol. FAMILY HISTORY: Noncontributory. ALLERGIES: PENICILLIN, CLARITHROMYCIN, AND SULFA. HOME MEDICATIONS: Include lisinopril 2.5 daily, spironolactone 50 mg daily, Toprol 100 mg daily but patient takes 50 mg twice a day, Coumadin and Lasix 40 mg daily. REVIEW OF SYSTEMS: All other 10-point review of systems are reviewed and are essentially negative at this time. See HPI for pertinent positives. PHYSICAL EXAMINATION: VITAL SIGNS: Blood pressure 124/67, heart rate 80, respirations 12, oxygen saturations 93%RA, afebrile. GENERAL: He is awake, alert and oriented x3, in no acute distress, sitting up in the chair comfortably with his family at the side. HEENT: Normocephalic, atraumatic. Extraocular motions intact. Sclerae nonicteric. Mucous membranes moist. NECK: Supple. Difficult to assess for any JVD, no carotid bruits appreciated. PULMONARY: Clear to auscultation bilaterally. No wheezes, rales, or rhonchi. CARDIOVASCULAR: Distant S1, S2, regular rate and rhythm. Positive systolic murmur. ABDOMEN: Positive bowel sounds, soft, nontender, nondistended. EXTREMITIES: No clubbing or cyanosis in bilateral fingers. Trace edema of the bilateral lower extremities. Peripheral pulses grossly intact. NEUROLOGIC: Grossly intact. SKIN: Grossly intact. RESULTS: EKG on admission SVT 176bpm, RBBB. Echocardiogram in August 2015, ejection fraction was 15-20%, severe MR, moderate TR. CBC: WBCs 1.36, hemoglobin 18.4, hematocrit 52.8, platelets 321. BMP: Sodium 137, potassium 3.7, chloride 96, carbon dioxide 31, BUN 27, creatinine 1.7, glucose 323. BNP 30747 Chest x-ray Mild cardiomegaly, trace b/l pleural effusions, mild pulmonary edema. REVIEW OF TELEMETRY: Currently in sinus rhythm; however, multiple episodes of SVT in the 130s. IMPRESSION: 1. Paroxysmal supraventricular tachycardia, most likely a short RP tachycardia. 2. Nonischemic cardiomyopathy with ejection fraction 15-20% by echo in August 2015. 3. Pulmonary hypertension. 4. Severe mitral regurgitation. 5. Hypertension. 6. Hyperlipidemia. 7. Probable obstructive sleep apnea, untreated. 8. History of a Holter monitor with frequent premature ventricular contractions of more than 36,000 back in 2011. PLAN: I had a long discussion with the patient and his family today regarding his cardiac conditions including nonischemic cardiomyopathy and his risks for sudden cardiac as well as his recurrent paroxysmal SVT. We discussed his options for procedures which include a dual chamber implantable cardiac defibrillator to prevent against primary sudden cardiac as well as possible electrophysiology study with possible ablation to further assess the recurrent SVT that he is having. I think that he is having more SVT lately because of his use of symv-ziq-hdcigea cough and flu remedies. He seemed to improve and quiet down with the addition of digoxin. I would recommend continuing with digoxin and putting him on an oral dose and we will just watch the levels closely as an outpatient since he still seems little hesitant about electrophysiology study with possible ablation, although I did discuss this with him and told him it is something I would highly recommend and we can do this as an outpatient. I explained the risks, benefits and alternatives to the procedure and he still would like to go home and think about it more. He would still like to try the medicines first. Amiodarone is another option. I have a feeling it would not help with his SVT but it is a possible try, especially if he still has all these PVCs that he had in 2012. I also further discussed the procedure for a dual chamber implantable cardiac defibrillator. This is an option that I could do while he is in-house during this hospitalization as long as his white count comes down and he does not seem to be actively sick. Again he seems reluctant to have any procedures. He does not qualify for a biventricular but he would qualify for a dual chamber defibrillator. The patient is still reluctant. I told the patient we will watch him overnight with the addition of digoxin to see how he does and how he feels. He can think more about the defibrillator, but we will keep him n.p.o. after midnight in case he does decide to move ahead with the defibrillator and his white count is down tomorrow. We will repeat an echocardiogram to see how things possibly could have worsened, as also the patient's family is requesting that. I will see him again tomorrow and probably as an outpatient as well. In the meantime continue his high dose metoprolol with the addition of digoxin and EP followup as an outpatient. VALERIANO
[2017-02-22] MEDS: DOXYCYCLINE HYCLATE 100 MG CAP PO SCH ×2 (08:36→20:43)
[2017-02-22] MEDS: METOPROLOL SUCC 50MG EXT REL TAB PO SCH ×2 (08:36→20:44)
[2017-02-22] MEDS ORDERED: DIGOXIN 0.125 MG TAB PO ONE (08:45)
[2017-02-22] MEDS: INSULIN GLARGINE SOLOSTAR 100 UNITS/ML 3 ML PEN SC SCH (09:07)
--- NOTE | 2017-02-22 09:26 | PROGRESS NOTE ---
DATE: 02/22/2017 SUBJECTIVE: The patient is a 71-year-old with nonischemic cardiomyopathy, chronic systolic heart failure with severe LV dysfunction, PSVT believed to be a reentry tachycardia and evidence of frequent PVCs and nonsustained ventricular tachycardia. Dr. Richardson's note from electrophysiology is appreciated. The patient at this time is reluctant to undergo any procedures. This was his decision a year ago as well when he was seen by Dr. Maynard as an outpatient. Yesterday, he was started on digoxin which seems to have improved his heart arrhythmias or at least decreased the frequency. He has no complaints of shortness of breath or chest pain. It should be noted that as an outpatient he was taking noly-wwd-oaxaish cold preparations including Sudafed. I counseled him that he cannot take nkzd-[id number]-zokkghd cold preps especially Sudafed with his heart condition. OBJECTIVE: GENERAL: He is alert and oriented, in no acute distress. VITAL SIGNS: Blood pressure is 110/60. Pulse is irregular at 65 beats per minute. He is afebrile. HEENT: He is normocephalic. Pupils are equal and reactive to light. Extraocular muscles are intact bilaterally. NECK: The neck veins are flat. Carotids have good upstrokes bilaterally without bruits. Thyroid is nonpalpable. RESPIRATORY: Breath sounds equal bilaterally and clear to auscultation. CARDIOVASCULAR: Heart has an irregular rhythm. There is a S4 but no S3. There is a systolic murmur at the apex of the heart. GASTROINTESTINAL: Abdomen is obese, soft, nontender without organomegaly. EXTREMITIES: Free of edema, digit clubbing, or cyanosis. NEUROLOGIC: Grossly intact. SKIN: Warm to touch. LYMPH NODES: Negative to palpation. IMPRESSION: 1. Nonischemic cardiomyopathy with severe left ventricular dysfunction. 2. Paroxysmal supraventricular tachycardia thought to be reentry tachycardia. 3. Complex ventricular ectopy. 4. Diabetes mellitus. RECOMMENDATIONS: From a cardiac standpoint, the patient is reluctant at this time to undergo any procedures. We will allow him to follow up with electrophysiology as an outpatient after he has had time to consider his options. We will continue the digoxin and metoprolol to control his arrhythmias. He had an echocardiogram completed today which I will review. He has also been started on diabetic medications including insulin this admission which will need to be adjusted. I am hopeful and anticipate that he can be discharged tomorrow to outpatient followup.
[2017-02-22] MEDS ORDERED: PERFLUTREN LIPID MICROSPHERE (DEFINITY) IV ONE (09:28)
--- NOTE | 2017-02-22 09:38 | ECHOCARDIOGRAM REPORT ---
*NOTICE TO RECEIVING DEMOCRAT AGENCY This information is strictly Confidential and protected under [place] law. [place] law prohibits you from making any further disclosure of this information unless further disclosure is expressly permitted by the written consent of the person to whom it pertains or is authorized by law. A general authorization for the release of medical or other information is not sufficient for this purpose. Hospital accepts no responsibility if the information is made available to any other person, INCLUDING THE PATIENT. Interpretation Summary * Name: CARTER LATHAM Study Date: 02/22/2017 07:23 AM BP: 93/54 mmHg * Patient Location: C.2T\S\S239\S\2 HR: 60 * : 1945 (M/d/y) Gender: Male Height: 69 in * Age: 71 yrs Ethnicity: [place] Weight: 260 lb * Ordering Physician: Jose Miguel Daniel * Referring Physician: Self, Referred * Performed By: Stephane Chen RCS * * Reason For Study: A-FIB, SVT * BSA: 2.3 m2 * -- Conclusions -- * The left ventricle is moderately dilated. * Diffcult to assess due to frequent PVC's, best estimate LVEF is around 25%. * There is severe mitral regurgitation. * There is moderate tricuspid regurgitation. Procedure Details * A complete two-dimensional transthoracic echocardiogram was performed (2D, M-mode, Doppler and color flow Doppler). * The study was technically difficult. * Patient supine for imagining * A contrast injection of Definity was performed to improve assessment of LV function. * Contrast was injected into an intravenous site in the right arm. * One vial of Definity ultrasound contrast was diluted in normal saline to a total volume of 10 ml. A total of '2' ml of solution was administered during imaging. * Lot # [id number] of Definity utilized for procedure. * Expiration date . * The attending nurse who injected the contrast agent was Ravinder Boyle RN. Left Ventricle * The left ventricle is moderately dilated. * There is normal left ventricular wall thickness. * Diffcult to assess due to frequent PVC's, best estimate LVEF is around 25%. Right Ventricle * The right ventricle is grossly normal size. * The right ventricular systolic function is mild to moderately reduced. Atria * The left atrial size is normal. * Right atrial size is normal. * No ASD detected; PFO is not assessed. Mitral Valve * The mitral valve is grossly normal. * There is severe mitral regurgitation. Tricuspid Valve * The tricuspid valve is not well visualized, but is grossly normal. * There is moderate tricuspid regurgitation. Aortic Valve * The aortic valve is tricuspid. The leaflet thickness if normal. There is no aortic stenosis, and no significant insufficiency. * Aortic stenosis is absent. * Mild aortic regurgitation. Pulmonic Valve * The pulmonic valve is not well visualized. Great Vessels * The aortic root and proximal ascending aorta are normal sized. Pericardium/Pleural * There is no pericardial effusion. MMode 2D Measurements and Calculations IVSd 1.2 cm IVSs 1.3 cm LVIDd 4.7 cm LVIDs 4.1 cm LVPWd 1.2 cm LVPWs 1.3 cm IVS/LVPW 0.99 FS 12.9 % EDV(Teich) 103.2 ml ESV(Teich) 74.4 ml EF(Teich) 27.8 % EDV(cubed) 104.9 ml ESV(cubed) 69.2 ml EF(cubed) 34.0 % % IVS thick 9.2 % % LVPW thick 6.3 % LV mass(C)d 212.2 grams LV mass(C)dI 91.9 grams/m\S\2 LV mass(C)s 191.5 grams LV mass(C)sI 82.9 grams/m\S\2 SV(Teich) 28.7 ml SI(Teich) 12.4 ml/m\S\2 SV(cubed) 35.7 ml SI(cubed) 15.5 ml/m\S\2 Ao root diam 3.5 cm Ao root area 9.5 cm\S\2 ACS 1.7 cm LA dimension 5.0 cm asc Aorta Diam 3.2 cm LA/Ao 1.4 EDV(MOD-sp4) 249.3 ml ESV(MOD-sp4) 169.4 ml EF(MOD-sp4) 32.1 % EDV(MOD-sp2) 251.7 ml ESV(MOD-sp2) 137.3 ml EF(MOD-sp2) 45.4 % SV(MOD-sp4) 79.9 ml SI(MOD-sp4) 34.6 ml/m\S\2 SV(MOD-sp2) 114.4 ml SI(MOD-sp2) 49.5 ml/m\S\2 Doppler Measurements and Calculations MV P1/2t max rayshawn 99.8 cm/sec MV P1/2t 126.1 msec MVA(P1/2t) 1.7 cm\S\2 MV dec slope 231.7 cm/sec\S\2 Ao V2 max 142.5 cm/sec Ao max PG 8.2 mmHg Ao V2 mean 103.5 cm/sec Ao mean PG 4.9 mmHg Ao V2 VTI 24.8 cm SV(Ao) 234.8 ml SI(Ao) 101.7 ml/m\S\2 PA V2 max 92.4 cm/sec PA max PG 3.4 mmHg TR max rayshawn 380.9 cm/sec
--- NOTE | 2017-02-22 12:49 | Clinical Documentation Query ---
CLINICAL DOCUMENTATION QUERY Dr. LUGO, Acute renal failure had originally been noted on the H/P but has since fallen off the clinical record. In your clinical opinion is this patient being managed for: ( x ) Acute kidney failure ( ) Not Agree ( ) Other explanation of clinical findings (Please Explain) ( ) Unable to determine (Please Define) ( ) Need to Discuss The medical record reflects the following clinical findings, treatment, and risk factors. Clinical Indicators: 71 yo male presenting with a racing heartbeat. Cr 1.7 which trended down to Cr 1.2 Treatment: 500 cc NSS at 60 cc/hr, hold home lasix dose, digoxin, monitor PRP Risk Factors: SVT, diuretic use Please clarify and document your clinical opinion in the progress notes and discharge summary. Terms such as "probable", "suspected", "likely", "questionable", "possible", or "still to be ruled out" are acceptable. IF IN AGREEMENT, YOU MUST DOCUMENT ABOVE DIAGNOSTIC STATEMENT IN DAILY PROGRESS NOTES AND DISCHARGE SUMMARY. This document is not part of the patient's record. Thank You, Heather Thrasher, JIM [phone]
--- NOTE | 2017-02-22 12:52 | Progress Note ---
Progress Note Date of Service Feb 22, 2017. Progress Note I had another discussion with the patient and his family today in regards to his pSVT. Pt is in agreement to have the EPS with possible ablation next week. Pt to hold his metoprolol and digoxin the night before and metoprolol morning of the procedure.
--- NOTE | 2017-02-22 16:15 | Progress Note ---
Internal Med Progress Note Date of Service: Feb 22, 2017. Provider Documentation: SUBJECTIVE: does no have any symptom of palpitation , no dizzy spell no cough or SOB finally agreeable to have EP study and ablation treatment done next week appreciate in put form Cardiology pt is scheduled for procedure next week on 03/01/17 at [facility] qc lab technician by Dr Richardson OBJECTIVE: Vital Signs-as noted below Exam: General-no sign of distress Eyes-sclera non icteric ENT-NAD Neck-no JVD Lungs-CTA Heart-regular Abdomen-soft, non tender Extremities- no lower ext edema Neuro-no focal deficit Lab data as noted below. ASSESSMENT & PLAN: PAROXYSMAL SVT : long standing hx of cardiac arrhythmia -PVC's /SVT -had Holter monitoring in 2011 , should significant arrhythmia in short duration pt refused to have Cardiac ablation /cardiac procedure done on past appreciate input form Cardiology given underlying severe cardiomyopathy /low EF 15 % -risk for fatal arrhythmia / sudden cardiac remains high -pt is updated by Cardiology EP Cardiology consulted for evaluation of possible ablation tx pt is agreeable to have the procedure next week , electively pt will be continued AV zoe blocking agents -started on Dig /cont beta genaro -Metoprolol BID pt is instructed to hold PM dose of Metoprolol and Dig the day before and morning dose of Metoprolol on day of procedure ROMAIN ON CKD STAGE 3 : cr was elevated 1.7 resolved , cr improved to 1.2 with IV fluid and holding off diuretics History of pulmonary embolism on Coumadin. presented with supra therapeutic. INR > 6 given vit K ; Coumadin kept on hold INR drifted down to 2.4 Coumadin can be resumed once INR ~2 will need close monitoring of Lab and Coumadin dosing in out pt setting at Coagulation clinic SEVERE NON ISCHEMIC CARDIOMYOPATHY Chronic systolic heart failure secondary to nonischemic cardiomyopathy (EF 15- 20% TTE 2016) vol status remains stable Pt is continued with Aldactone high risk for fatal cardiac arrhythmia in setting of poor EF and paroxysmal SVT will benefit with AICD /Pacemaker pt was reluctant for cardiac procedure /ablation in past now agreeable for elective procedure /ablation done next week Cardiology following DVT PROPHYLAXIS INR elevated DISPOSITION possible discharge home tomorrow Vital Signs: Date Time Temp Pulse Resp B/P (MAP) Pulse Ox O2 Delivery O2 Flow Rate FiO2 02/23/17 07:44 36.8 69 20 107/70 (82) 94 Room Air 02/23/17 04:00 94 Room Air 02/23/17 04:00 36.9 73 116/77 (90) 93 Room Air 02/23/17 00:00 93 Room Air 02/23/17 00:00 37.0 89 113/73 (86) 93 Room Air 02/22/17 20:15 36.6 70 20 112/65 (81) 92 Room Air 02/22/17 20:00 Room Air 02/22/17 18:16 84 02/22/17 16:00 Room Air 02/22/17 15:35 36.5 74 18 105/67 (80) 94 Room Air 02/22/17 14:21 64 16 93 Room Air 02/22/17 12:27 36.7 65 20 112/66 (81) 93 Room Air 02/22/17 12:00 Room Air Nasal Cannula 02/22/17 11:32 59 92 02/22/17 11:28 168 109/73 02/22/17 09:22 36.7 85 20 109/73 (85) 94 Room Air 02/22/17 09:05 89 02/22/17 08:53 Room Air Nasal Cannula Lab Results: Results Past 24 Hours Test 02/22/17 11:00 02/22/17 16:17 02/22/17 19:50 02/23/17 06:37 Range/Units Bedside Glucose 167 117 111 116 70-99 mg/dl Test 02/23/17 06:41 Range/Units Prothrombin Time 19.7 9.0-12.0 SECONDS Prothromb Time International Ratio 1.8 0.9-1.1
[2017-02-22] MEDS ORDERED: LNX125 PO ×2 (17:13→17:22)
--- NOTE | 2017-02-22 17:14 | Discharge Instructions ---
Discharge Instructions Date of Service Feb 22, 2017. Admission Reason for Admission: Respiratory Failure, Acute Discharge Discharge Diagnosis / Problem: TACYCARDIA /ABNORMAL HEART RHYTHM /SEVERE CARDIOMYOPATHY Discharge Goals Goal(s): Decrease discomfort, Improve disease control, Diagnostic testing, Therapeutic intervention Activity Recommendations Activity Limitations: as noted below ( TOLERATED ) Shower/Bathe: no limitations . Instructions / Follow-Up Instructions / Follow-Up HOSPITAL FOLLOW UP 02/24/2017 1:[address] Riaz Ochoa MD [facility] ANTICOAGULATION CLINIC FOLLOW UP IN 1-2 DAYS NEED TO HAVE PT /INR CHECKED FOR FURTHER ADJUSTMENTS OF COUMADIN DOSE IF NEEDED CARDIOLOGY FOLLOW UP : SCHEDULE TO HAVE ELECTROPHYSIOLOGY MAPPING AND CATHETER ABLATION OF HEART ON Date: 03/01/2017 Time: 8:00 AM AT [facility] BY DR Bria Richardson, DO NOTHING BY MOUTH AFTER MID NIGHT BEFORE PROCEDURE ( CARDIOLOGY OFFICE WILL CONTACT YOU WITH INSTRUCTIONS ) DO NOT TAKE METOPROLOL AND DIGOXIN THE NIGHT BEFORE ( ON 02/28/17 ) AND DO NOT TAKE METOPROLOL ON MORNING OF PROCEDURE ( 03/01/17 ) FOLLOW INSTRUCTIONS FORM ANTICOAGULATION CLINIC AND CARDIOLOGY TO STOP TAKING COUMADIN PRIOR TO CARDIAC PROCEDURE ON 03/01/17 Current Hospital Diet Patient's current hospital diet: Diabetes Type 2 Diet, AHA Diet (Heart Healthy) Discharge Diet Recommended Diet: AHA Diet (Heart Healthy) Pending Studies Studies pending at discharge: no Laboratory Results Hemoglobin A1c Test 02/21/17 02:25 Range/Units Estimated Average Glucose 171 mg/dl Hemoglobin A1c 7.6 H 4.5-5.6 % Lipid Panel Test 02/22/17 05:57 Range/Units Triglycerides Level 67 0-150 mg/dl Cholesterol Level 89 0-200 mg/dl HDL Cholesterol 23 mg/dl Cholesterol/HDL Ratio 3.9 LDL Cholesterol, Calculated 53 mg/dl Medical Emergencies . Who to Call and When: Medical Emergencies: If at any time you feel your situation is an emergency, please call 911 immediately. . Non-Emergent Contact Non-Emergency issues call your: Primary Care Provider . . "Provider Documentation" section prepared by Luisa Simms. . VTE Core Measure Inpt VTE Proph given/why not?: Sravan Lomax, SCD's
[2017-02-22] MEDS: DIGOXIN 0.125 MG TAB PO SCH (18:16)
[2017-02-23] VITALS: BP 113/73; PULSE 89; TEMP 37; O2SAT 93
[2017-02-23 04:00] VITALS: BP 116/77; PULSE 73; TEMP 36.9; O2SAT 93; O2SAT 94
[2017-02-23 07:32] LABS: INR 1.8 (0.9-1.1); PROTHROMBIN TIME (PATIENT) 19.7 SECONDS (9.0-12.0)
[2017-02-23 07:44] VITALS: BP 107/70; PULSE 69; TEMP 36.8; O2SAT 94
[2017-02-23] MEDS: DOXYCYCLINE HYCLATE 100 MG CAP PO SCH (07:48)
[2017-02-23] MEDS: METOPROLOL SUCC 50MG EXT REL TAB PO SCH (07:48)
[2017-02-23] MEDS: INSULIN GLARGINE SOLOSTAR 100 UNITS/ML 3 ML PEN SC SCH (07:55)
[2017-02-23] MEDS: INSULIN ASPART 100 UNITS/ML 3 ML PEN SC SCH ×2 (07:55→12:41)
--- NOTE | 2017-02-23 10:07 | PROGRESS NOTE ---
DATE: 02/23/2017 FOLLOWUP VISIT Mr. Tyler is a 71-year-old with a history of ischemic heart disease, complex arrhythmias including PSVT as well as nonsustained ventricular tachycardia. Previously, the patient had been reluctant to undergo any procedures; however, he now is willing to proceed with an EP mapping and possible ablation with an ICD if required. The patient is scheduled to have these procedures next week. The plan is to discharge him over the weekend and let him returned as an outpatient. He has no complaints today. I answered all questions and he will be discharged today.
[2017-02-23 11:58] VITALS: BP 108/66; PULSE 62; TEMP 36.8; O2SAT 94
[2017-02-23 13:36] VITALS: BP 108/66; PULSE 62; TEMP 36.8; O2SAT 94
[2017-02-23] MEDS ORDERED: WARFARIN SOD 2 MG TAB PO ONE (15:15)
[2017-02-23] MEDS ORDERED: NURSING VERBAL MED ORDER ONE (15:15)
[2017-02-23] MEDS: DIGOXIN 0.125 MG TAB PO SCH (15:40)
--- NOTE | 2017-02-23 16:05 | Progress Note ---
Internal Med Progress Note Date of Service: Feb 23, 2017. Provider Documentation: SUBJECTIVE: no complain of palpitation or dizzy spell HR remains stable since starting on Digoxin scheduled for ablation tx next week evaluated by Cardiology this AM stable to be discharged home today OBJECTIVE: Vital Signs-as noted below Exam: General-no sign of distress Eyes-sclera non icteric ENT-NAD Neck-no JVD Lungs-CTA Heart-regular Abdomen-soft, non tender Extremities- no lower ext edema Neuro-no focal deficit Lab data as noted below. ASSESSMENT & PLAN: PAROXYSMAL SVT : HR better controlled after starting on Digoxin long standing hx of cardiac arrhythmia -PVC's /SVT -had Holter monitoring in 2011 , should significant arrhythmia in short duration pt refused to have Cardiac ablation /cardiac procedure done on past appreciate input form Cardiology given underlying severe cardiomyopathy /low EF 15 % -risk for fatal arrhythmia / sudden cardiac remains high -pt is updated by Cardiology EP Cardiology consulted for evaluation of possible ablation tx pt is agreeable to have the procedure next week , electively pt will be continued AV zoe blocking agents -started on Dig /cont beta genaro -Metoprolol BID pt is instructed to hold PM dose of Metoprolol and Dig the day before and morning dose of Metoprolol on day of procedure ROMAIN ON CKD STAGE 3 : resolved pt will be discharged home with previous diuretics dose History of pulmonary embolism on Coumadin. presented with supra therapeutic. INR > 6 given vit K ; Coumadin kept on hold INR drifted down to 1.8 today Coumadin resumed will need close monitoring of Lab and Coumadin dosing in out pt setting at Coagulation clinic SEVERE NON ISCHEMIC CARDIOMYOPATHY Chronic systolic heart failure secondary to nonischemic cardiomyopathy (EF 15- 20% TTE 2016) vol status remains stable Pt is continued with Aldactone high risk for fatal cardiac arrhythmia in setting of poor EF and paroxysmal SVT will benefit with AICD /Pacemaker agreeable for elective procedure /ablation done next week Cardiology following DVT PROPHYLAXIS Coumadin DISPOSITION discharge home today Vital Signs: Date Time Temp Pulse Resp B/P (MAP) Pulse Ox O2 Delivery O2 Flow Rate FiO2 02/23/17 15:40 84 02/23/17 13:36 36.8 62 16 94 Room Air 02/23/17 12:00 Room Air 02/23/17 11:58 36.8 62 16 108/66 (80) 94 Room Air 02/23/17 08:00 Room Air 02/23/17 07:44 36.8 69 20 107/70 (82) 94 Room Air 02/23/17 04:00 94 Room Air 02/23/17 04:00 36.9 73 116/77 (90) 93 Room Air 02/23/17 00:00 93 Room Air 02/23/17 00:00 37.0 89 113/73 (86) 93 Room Air 02/22/17 20:15 36.6 70 20 112/65 (81) 92 Room Air 02/22/17 20:00 Room Air 02/22/17 18:16 84 Lab Results: Results Past 24 Hours Test 02/22/17 16:17 02/22/17 19:50 02/23/17 06:37 02/23/17 06:41 Range/Units Bedside Glucose 117 111 116 70-99 mg/dl Prothrombin Time 19.7 9.0-12.0 SECONDS Prothromb Time International Ratio 1.8 0.9-1.1
--- NOTE | 2017-02-23 16:06 | Discharge Summary ---
Discharge Summary Date of Service Feb 23, 2017. Discharge Summary Admission Date: Feb 21, 2017 at 05:26 Discharge Date: Feb 23, 2017 Discharge Disposition: Home Principal Diagnosis: TACHYCARDIA /ABNORMAL HEART RHYTHM /SEVERE CARDIOMYOPATHY Procedures: ECHO : The left ventricle is moderately dilated. Diffcult to assess due to frequent PVC's, best estimate LVEF is around 25%. There is severe mitral regurgitation. There is moderate tricuspid regurgitation. Consultations: CARDIOLOGY Medication Reconciliation New Medications: Digoxin (Digoxin) 0.125 Mg Tab 0.125 MG PO DAILY, #30 TAB 2 Refills TAKE IN AFTERNOON Continued Medications: Furosemide (Lasix) 40 Mg Tab 40 MG PO QAM Metoprolol Succinate (Metoprolol Succinate ER) 100 Mg Tabcr 50 MG PO BID Spironolactone (Aldactone) 25 Mg Tab 25 MG PO QAM Warfarin Sodium (Coumadin) 3 Mg Tab 1 TAB PO 5XWK, 3 Refills take daily mon/mon//mon/mon/sun Warfarin Sodium (Coumadin) 3 Mg Tab 2 TAB PO WK take daily on all tuesdays Admission Information HPI (per Admitting provider): DATE OF ADMISSION: 02/21/2017 PRIMARY CARE DOCTOR: Dr. Ochoa. CHIEF COMPLAINT: Palpitations, tachycardia. HISTORY OF PRESENT ILLNESS: History obtained from patient and records. Medical history significant for hypertension, chronic systolic heart failure, nonischemic cardiomyopathy as per records (EF 15-205), valvular heart disease (severe mitral regurgitation), pulmonary embolus/portal vein thrombosis on anticoagulation, PSVT as per records. Recent confinement last July 2011 for acute colitis. Last week the patient had dry cough symptoms, not feeling well, appetite poor, using inhalers just twice a day as per patient. Patient woke up this morning with palpitations, racing heart, increasing shortness of breath. Denies weight gain, unusual leg swelling. At the Emergency Room, the patient noted to be in rapid Afib, thought to be in CHF. Given Lopressor. Lasix. Patient little more comfortable. MED hx as above : 2D echo from August 2015 showed diffuse segmental LV hypokinesis to akinesis. All segments of inferior, posterior, posterolaterally left ventricle are akinetic, anterolateral wall dyskinetic, basal segments. hypokinetic calculated LVEF 15-20%, pulmonary hypertension noted, PASP greater than 39, severe MR, moderate TR. Last seen at [facility] Cardiology October 2015. Referred [facility] for SVT. Patient had later requested to be seen by another partner in the group due to some difference in opinion. [facility] EPS evaluation December 2015 (Dr. Lewis) December 2015. Catheter ablation recommended for SVT because of recurrence of tachycardia. Recommendation for primary prevention ICD also recommended because of cardiomegaly with severe LV dysfunction. MEDICAL HISTORY: As above. SURGICAL HISTORY: Neck surgery, tonsillectomy, adenectomy, hernia repair. HOME MEDICATIONS: Include Lasix, Toprol, spironolactone, Coumadin. ALLERGIES: BACTRIM, PENICILLIN, SULFA. FAMILY HISTORY: Family history of heart disease. PERSONAL AND SOCIAL HISTORY: Nonsmoker, no EtOH intake, retired from purchasing. REVIEW OF SYSTEMS: As per HPI, all other ROS negative. Physical Exam (per Admitting): PHYSICAL EXAMINATION: VITAL SIGNS: Blood pressure was noted to be 90/60 later 110/70, pulse rate 176, currently 89, RR 20, temperature 36.4, sats 94 on room air, later 93 on 3 liters. GENERAL: Noted to be obese, anxious, no respiratory distress. SKIN: Normal color. HEAD, EYES, EARS, NOSE, AND THROAT: Alopecia. [place] palpebral conjunctivae. Dry mucosa. NECK: Short neck. HEART: irreg, diminished S1, S2, systolic murmur. CHEST: Decreased breath sounds. ABDOMEN: Some distention, nontender. EXTREMITIES: Minimal LE edema. No tenderness NEUROLOGIC: No gross focality. Hospital Course PAROXYSMAL SVT : HR better controlled after starting on Digoxin long standing hx of cardiac arrhythmia -PVC's /SVT -had Holter monitoring in 2011 , should significant arrhythmia in short duration pt refused to have Cardiac ablation /cardiac procedure done on past appreciate input form Cardiology given underlying severe cardiomyopathy /low EF 15 % -risk for fatal arrhythmia / sudden cardiac remains high -pt is updated by Cardiology EP Cardiology consulted for evaluation of possible ablation tx pt is agreeable to have the procedure next week , electively pt will be continued AV zoe blocking agents -started on Dig /cont beta genaro -Metoprolol BID pt is instructed to hold PM dose of Metoprolol and Dig the day before and morning dose of Metoprolol on day of procedure ROMAIN ON CKD STAGE 3 : resolved pt will be discharged home with previous diuretics dose History of pulmonary embolism on Coumadin. presented with supra therapeutic. INR > 6 given vit K ; Coumadin kept on hold INR drifted down to 1.8 today Coumadin resumed will need close monitoring of Lab and Coumadin dosing in out pt setting at Coagulation clinic SEVERE NON ISCHEMIC CARDIOMYOPATHY Chronic systolic heart failure secondary to nonischemic cardiomyopathy (EF 15- 20% TTE 2016) vol status remains stable Pt is continued with Aldactone high risk for fatal cardiac arrhythmia in setting of poor EF and paroxysmal SVT will benefit with AICD /Pacemaker agreeable for elective procedure /ablation done next week Cardiology following DVT PROPHYLAXIS Coumadin DISPOSITION discharge home today Total time spent on discharge = 40 MINS This includes examination of the patient, discharge planning, medication reconciliation, and communication with other providers. Discharge Instructions Discharge Instructions Date of Service Feb 22, 2017. Admission Reason for Admission: Respiratory Failure, Acute Discharge Discharge Diagnosis / Problem: TACHYCARDIA /ABNORMAL HEART RHYTHM /SEVERE CARDIOMYOPATHY Discharge Goals Goal(s): Decrease discomfort, Improve disease control, Diagnostic testing, Therapeutic intervention Activity Recommendations Activity Limitations: as noted below ( TOLERATED ) Shower/Bathe: no limitations . Instructions / Follow-Up Instructions / Follow-Up HOSPITAL FOLLOW UP 02/24/2017 1:[address] Riaz Ochoa MD [facility] ANTICOAGULATION CLINIC FOLLOW UP IN 1-2 DAYS NEED TO HAVE PT /INR CHECKED FOR FURTHER ADJUSTMENTS OF COUMADIN DOSE IF NEEDED CARDIOLOGY FOLLOW UP : SCHEDULE TO HAVE ELECTROPHYSIOLOGY MAPPING AND CATHETER ABLATION OF HEART ON Date: 03/01/2017 Time: 8:00 AM AT [facility] BY DR Bria Richardson, DO NOTHING BY MOUTH AFTER MID NIGHT BEFORE PROCEDURE ( CARDIOLOGY OFFICE WILL CONTACT YOU WITH INSTRUCTIONS ) DO NOT TAKE METOPROLOL AND DIGOXIN THE NIGHT BEFORE ( ON 02/28/17 ) AND DO NOT TAKE METOPROLOL ON MORNING OF PROCEDURE ( 03/01/17 ) FOLLOW INSTRUCTIONS FORM ANTICOAGULATION CLINIC AND CARDIOLOGY TO STOP TAKING COUMADIN PRIOR TO CARDIAC PROCEDURE ON 03/01/17 Current Hospital Diet Patient's current hospital diet: Diabetes Type 2 Diet, AHA Diet (Heart Healthy) Discharge Diet Recommended Diet: AHA Diet (Heart Healthy) Pending Studies Studies pending at discharge: no Laboratory Results Hemoglobin A1c Test 02/21/17 02:25 Range/Units Estimated Average Glucose 171 mg/dl Hemoglobin A1c 7.6 H 4.5-5.6 % Lipid Panel Test 02/22/17 05:57 Range/Units Triglycerides Level 67 0-150 mg/dl Cholesterol Level 89 0-200 mg/dl HDL Cholesterol 23 mg/dl Cholesterol/HDL Ratio 3.9 LDL Cholesterol, Calculated 53 mg/dl Medical Emergencies . Who to Call and When: Medical Emergencies: If at any time you feel your situation is an emergency, please call 911 immediately. . Non-Emergent Contact Non-Emergency issues call your: Primary Care Provider . . "Provider Documentation" section prepared by Luisa Simms. . VTE Core Measure Inpt VTE Proph given/why not?: Sravan Lomax, SCD's Additional Copies To Riaz Ochoa M.D. Phill Resendez, DO
--- NOTE | 2017-03-02 12:35 | EDITING REQUIRED CODING QUERY ---
SEPSIS Dear Dr. Simms, To promote full compliance with coding requirements relating to patient care, physician participation is requested in all cases of computer language coder uncertainty. Please assist us with the question(s) below: In responding to this query, please exercise your independent professional judgement. The fact that a question is asked does not imply that any particular answer is desired or expected. We appreciate your clarification on this issue. Sepsis is documented within the medical record but not on the discharge summary. Did the patient have? ( )Bacteremia (Nonspecific laboratory finding of bacteria in the blood) Specify Organism () Present on Admission (x) Not present on admission () Unable to clinically determine ( ) Septicemia (Systemic disease associated with the presence of pathogenic microorganisms in the blood): Specify Organism () Present on Admission (x) Not present on admission () Unable to clinically determine ( ) Sepsis Specify Organism Specify Associated Condition/Diagnosis () Present on Admission (x) Not present on admission () Unable to clinically determine ( ) Severe Sepsis (Sepsis associated with acute organ dysfunction) Specify Organism Specify Associated Condition/Diagnosis () Present on Admission () Not present on admission () Unable to clinically determine ( ) Septic Shock (Severe sepsis with acute circulatory failure, unexplained by other causes) () Present on Admission () Not present on admission () Unable to clinically determine ( ) Other, patient has: ( x) Sepsis was ruled out Thank you for your time. Joanie Ignacio, CHAINMAN
--- NOTE | 2017-03-02 12:39 | EDITING REQUIRED CODING QUERY ---
CODING QUERY To promote full compliance with coding requirements relating to patient care, provider participation is requested in all cases of cyber transport systems specialist uncertainty. Please assist us with the question(s) below: Dear Dr. Simms, Possible Bronchitis and atypical pneumonia are documented on the H and P. Coding Question(s): Does the patient have? ( x ) Bronchitis ( ) Pneumonia - atypical ( ) Pneumonia - bacterial ( ) Pneumonia - viral ( ) Other: Please explain ( ) Bronchitis was ruled out ( ) Pneumonia was ruled out. ( ) Unable to determine Physician's Response(s): Thank you for your time. Joanie Ignacio [facility] Principal Diagnosis: "_that condition established after study, to be chiefly responsible for occasioning the admission of the patient to the hospital for care." Co-Existing Principal Diagnosis: "_when two or more diagnoses equally meet the criteria for principal diagnosis as determined by the circumstances of admission, diagnostic work up, and/or therapy provided, and the Alphabetic Index, Tabular List, or another coding guideline does not provide sequencing direction, any one of the diagnoses may be sequenced first." "When the physician has documented what appears to be a current diagnosis in the body of the record, but has not included the diagnosis in the final diagnostic statement, the physician should be asked whether the diagnosis should be added." (Source [facility]oding [facility] 2 QTR90. p3-4)
== END 2017-02-23 15:49 | disposition home or self-care (01) | DRG 309 ==
LOC: C.EDB 02:08 → C.2T 05:26 → ENRESERV 05:34
PROVIDERS: ADMIT Internal Medicine; ATTEND Hospitalist
DX: I47.1 Supraventricular tachycardia (principal); N17.9 Acute kidney failure, unspecified; I50.22 Chronic systolic (congestive) heart failure; I42.9 Cardiomyopathy, unspecified; N18.3 Chronic kidney disease, stage 3 (moderate); Z86.711 Personal history of pulmonary embolism; I12.9 Hypertensive chronic kidney disease with stage 1 through stage 4 chronic kidney disease, or unspecified chronic kidney disease; J20.8 Acute bronchitis due to other specified organisms; E11.9 Type 2 diabetes mellitus without complications; E66.9 Obesity, unspecified; I48.91 Unspecified atrial fibrillation; I49.3 Ventricular premature depolarization; Z53.29 Procedure and treatment not carried out because of patient's decision for other reasons; I08.1 Rheumatic disorders of both mitral and tricuspid valves; I27.2 Other secondary pulmonary hypertension; E78.5 Hyperlipidemia, unspecified; G47.33 Obstructive sleep apnea (adult) (pediatric); Z79.899 Other long term (current) drug therapy; Z79.01 Long term (current) use of anticoagulants; Z86.718 Personal history of other venous thrombosis and embolism

== ENCOUNTER 2017-02-24 11:27 | Emergency (ER) | payer OTHER ==
[~2017-02-24 11:27] MED LIST changes: +LNX125 PO; -METO1TAB66 PO; +TPRSR/100 PO; -WARF3TAB6 PO
[2017-02-24] MEDS ORDERED: MIDAZOLAM HCL 5 MG/ML 2ML VIAL IV ONE (11:31)
[2017-02-24] MEDS ORDERED: LIDOCAINE 2% 20 MG/ML 5ML SYR IV ONE ×2 (11:31)
[2017-02-24] MEDS ORDERED: AMIODARONE HCL INJ 50 MG/ML 3 ML VIAL IV ONE (11:31)
[2017-02-24] MEDS ORDERED: SODIUM BICARB 8.4% INJ 50 MEQ/50 ML SYR IV ONE (11:31)
[2017-02-24] MEDS ORDERED: CALCIUM CHLORIDE 10% 10 ML SYR IV ONE (11:31)
[2017-02-24] MEDS ORDERED: DEXTROSE 5% 100 ML BAG IV ONE (11:31)
[2017-02-24] MEDS ORDERED: EPINEPHRINE HCL 4 MG in DEXTROSE 5% 250ML IV PRN (11:45)
[2017-02-24 11:56] LABS: ISTAT CREATININE 1.2 mg/dl (0.6-1.3); ISTAT HEMOGLOBIN 18.4 g/dl (14.0-18.0); ISTAT IONIZED CALCIUM 1.04 mmol/l (1.12-1.32)
[2017-02-24 12:03] VITALS: BP 116/74
--- NOTE | 2017-02-24 12:12 | EMERGENCY ROOM VISIT NOTE ---
History Report prepared by Scribe: Cindy Gerardo Under the Supervision of: Dr. Shaheen Quan M.D. First contact with patient: 11:21 Chief Complaint: CARDIAC ARREST Stated Complaint: CARDIAC ARREST History of Present Illness The patient is a 74 year old male who presents to the Emergency Room by EMS for cardiac arrest. Per EMS, the patient was found by who called EMS. The patient has been coding for 45 minutes prior to arrival. The patient was seen in the ED 3 days ago for palpitations and shortness of breath. History limited secondary to cardiac arrest. History Limited By: cardiac arrest Review of Systems ROS limited secondary to cardiac arrest. Past Medical & Surgical Medical Problems: (1) Atrial fibrillation (2) Respiratory failure, acute Family History Limited secondary to cardiac arrest. Social History Marital Status: Current/Historical Medications Scheduled Digoxin (Digoxin), 0.125 MG PO DAILY Furosemide (Lasix), 40 MG PO QAM Metoprolol Succinate (Metoprolol Succinate ER), 50 MG PO BID Spironolactone (Aldactone), 25 MG PO QAM Warfarin Sodium (Coumadin), 1 TAB PO 5XWK Warfarin Sodium (Coumadin), 2 TAB PO WK Allergies Coded Allergies: Penicillins (Verified Allergy, Severe, GI UPSET, 02/21/17) Sulfamethoxazole w/Trimethoprim (Verified Allergy, Severe, GI UPSET, HIVES , 02/21/17) Sulfa Antibiotics (Verified Allergy, Unknown, NAUSEA/VOMITING, 02/21/17) Physical Exam Vital Signs Date Time Temp Pulse Resp B/P (MAP) Pulse Ox O2 Delivery O2 Flow Rate FiO2 02/24/17 12:32 0 0 0 02/24/17 12:29 74 02/24/17 12:24 66 02/24/17 12:22 62 02/24/17 12:16 58 Ambu-Bag 02/24/17 12:15 63 02/24/17 12:14 64 02/24/17 12:07 74 02/24/17 12:03 79 116/74 78 Ambu-Bag 02/24/17 12:01 83 02/24/17 12:00 84 02/24/17 11:53 86 02/24/17 11:52 92 02/24/17 11:42 185 02/24/17 11:38 68 67/40 88 Ambu-Bag 02/24/17 11:34 106 02/24/17 11:27 0 Ambu-Bag Physical Exam GENERAL: CPR in progress, no pulses, no blood pressure. HENT: Normocephalic, atraumatic. Oropharynx unremarkable. EYES: Normal conjunctiva. Sclera non-icteric. NECK: Supple. No nuchal rigidity. FROM. No JVD. RESPIRATORY: Bronchus breath sounds throughout with ventilation. CARDIAC: Regular rate, normal rhythm. Extremities warm and well perfused. ABDOMEN: Obese abdomen but soft. RECTAL: Deferred. MUSCULOSKELETAL: Chest examination reveals no tenderness. The back is symmetrical on inspection without obvious abnormality. There is no CVA tenderness to palpation. No joint edema. LOWER EXTREMITIES: Calves are equal size bilaterally and non-tender. 1+ bilateral lower extremity edema. NEURO: GCS 3T SKIN: Cool, pale and clammy. Medical Decision & Procedures Laboratory Results Test 02/24/17 11:43 02/24/17 11:47 Bedside Hemoglobin 18.4 g/dl (14.0-18.0) Bedside Hematocrit 54 % (42-52) Bedside Sodium 141 mEq/L (135-144) Bedside Potassium 3.2 mEq/L (3.3-5.0) Bedside Chloride 99 mEq/L (101-112) Bedside Total CO2 25 mEq/l (24-31) Anion Gap 21.0 mmol/L (16-25) Bedside Blood Urea Nitrogen 26 mg/dl (7-18) Bedside Creatinine 1.2 mg/dl (0.6-1.3) Bedside Glucose (other) 242 mg/dl (70-99) Bedside Ionized Calcium (Ravinder) 1.04 mmol/l (1.12-1.32) Bedside Troponin I 0.030 ng/ml (0-0.045) Laboratory results reviewed by me Medications Administered Medications (Trade) Dose Ordered Sig/Sarah Route Start Time Stop Time Status Last Admin Dose Admin Epinephrine HCl 4 mg/Dextrose 254 ml @ 0 mls/hr Q0M PRN IV 02/24/17 11:45 02/24/17 14:47 DC 02/24/17 11:56 516 MLS/HR Epinephrine HCl (EpINEphrine HCL 1.5" NDL 0.1 MG/ ML SYR) 3 mg STK-MED ONCE .ROUTE 02/24/17 12:01 02/24/17 12:02 DC 02/24/17 12:01 3 MG Morphine Sulfate (MoRPHine SULFATE INJ) 8 mg STK-MED ONCE .ROUTE 02/24/17 12:27 02/24/17 12:28 DC 02/24/17 12:27 8 MG ED Course 1127: The patient was evaluated in room A1. A complete history and physical exam was performed. 1132: The patient has pulses. 1140: The patient does not have pulses. 1145: Epinephrine HCl 4 mg/Dextrose 254 ml @ 0 mls/hr Protocol IV. 1147: The patient was shocked. 1201: Epinephrine HCl 3 mg .ROUTE. 1211: I talked to the family at bedside. The family said to stop treatment if we lose pulse again. 1227: Morphine Sulfate 8 mg .ROUTE. 1228: Versed Inj 10 mg .ROUTE. 1232: Time of was called. Medical Decision I reviewed the patient's past medical history, medications, and the nursing notes as described above. Differential diagnosis: ventricular fibrillation arrest due to ACS vs PE vs electrolyte abnormality vs arrhythmia vs infection. Patient is a 71-year-old gentleman with a past medical history of CHF with an EF of 15% previously evaluated by cardiology and recommending AICD which the patient declined essentially emergency department via EMS after cardiac arrest with initial symptoms starting around 11 AM. Patient arrives emergency department in PEA arrest, was given an amp of bicarbonate and epi with subsequent Rosc. However, perfusing rhythm was limited as after approximately 5 minutes pulse waned and returned to PEA. Patient was subsequently coded for another hour with treatments of epi, calcium, bicarbonate, lidocaine, amiodarone with several episodes of rosc but subsequent decompensation with episodes of pulseless V. tach and V. fib with subsequent defibrillations. After prolonged code case was discussed with the family and the patient's poor prognosis considering no purposeful movements, with absent gag, pupillary and corneal reflex in the setting of approximately one hour and a half of poor cerebral perfusion. decided to stop treatment but requested to see the patient before treatment was withdrawn. Subsequently CPR was ceased, epinephrine drip was stopped, the patient was ventilated for comfort however patient still maintained a pulse albeit tenuous with perfusing rhythm with frequent ectopy. Was given morphine and Versed for comfort. The patient obtained asystole and had absent pulses and respirations, absent gag, corneal, pupillary, oculocephalic reflexes and was pronounced at 12:32 PM. Family was updated at the bedside. Medication Reconcilliation Current Medication List: was personally reviewed by me Impression Primary Impression: Cardiac arrest Critical Care I have personally spent greater than 90 minutes of critical care time in the direct management of this patient. This includes bedside care, interpretation of diagnostic studies, and testing, discussion with consultants, patient, and family members, and other required patient management activities. This 90 minutes is in excess of all separately billable procedures. Scribe Attestation The scribe's documentation has been prepared under my direction and personally reviewed by me in its entirety. I confirm that the note above accurately reflects all work, treatment, procedures, and medical decision making performed by me. Departure Information Dispostion Patient Instructions [facility]
[2017-02-24] MEDS ORDERED: MoRPHine SULFATE 4 MG/ML 1 ML CARP\\VIAL ONE (12:27)
[2017-02-24] MEDS ORDERED: MIDAZOLAM HCL 5 MG/ML 2ML VIAL ONE (12:28)
[2017-02-24 12:32] VITALS: PULSE 0; O2SAT 0
== END 2017-02-24 12:32 | disposition expired ==
LOC: EDBD 11:27 → C.ED 11:30 → C.EDA 12:32
DX: I46.9 Cardiac arrest, cause unspecified (principal); I48.91 Unspecified atrial fibrillation; Z79.01 Long term (current) use of anticoagulants